=== PATIENT | female | born 1990 ===

== ENCOUNTER 2021-09-25 13:57 | Outpatient (CLI) | payer OTHER | END 2021-09-25 15:00 | disposition home or self-care (01) | LOC: PRENATAL 13:57 | PROVIDERS: ATTEND Obstetrics & Gynecology Maternal & Fetal Medicine | DX: O35.0XX0 Maternal care for (suspected) central nervous system malformation in fetus, not applicable or unspecified (principal); Z34.00 Encounter for supervision of normal first pregnancy, unspecified trimester ==